=== PATIENT | male | born 1985 | race African-American/Black ===

== ENCOUNTER 2016-07-20 19:16 | Emergency (ER) | payer OTHER | END 2016-07-20 20:10 | disposition other institution (70) | LOC: ED 19:16 | DX: Z02.89 Encounter for other administrative examinations (principal) ==

== ENCOUNTER 2016-07-20 19:16 | Emergency (ER) | payer SELFPAY ==
[2016-07-20 19:30] VITALS: BP 155/58
== END 2016-07-20 20:10 | disposition other institution (70) ==
LOC: ED 19:16
DX: S89.92XA Unspecified injury of left lower leg, initial encounter (principal); X58.XXXA Exposure to other specified factors, initial encounter; Y93.89 Activity, other specified; Y92.89 Other specified places as the place of occurrence of the external cause; Y99.8 Other external cause status